=== PATIENT | male | born 1955 | race African-American/Black ===

== ENCOUNTER 2023-09-07 18:11 | Emergency (ER) | payer MEDICAID, OTHER ==
[~2023-09-07] VITALS: Ht 177.8 cm; Wt 74.0 kg
[2023-09-07 18:16] VITALS: BP 122/73; PULSE 61; RESP 16; TEMP 98.9; O2SAT 99
[2023-09-07] MEDS ORDERED: METH-653 MT (20:25)
== END 2023-09-07 21:13 | disposition home or self-care (01) ==
LOC: ER 18:51
DX: R10.31 Right lower quadrant pain (principal); V49.9XXA Car occupant (driver) (passenger) injured in unspecified traffic accident, initial encounter; Y93.89 Activity, other specified; Y92.89 Other specified places as the place of occurrence of the external cause; Y99.8 Other external cause status
CPT/HCPCS: 72170; 99283

== ENCOUNTER 2023-09-11 00:32 | Emergency (ER) | payer MEDICARE, MEDICAID ==
[~2023-09-11] VITALS: Ht 177.8 cm; Wt 74.0 kg
[~2023-09-11 00:32] MED LIST: METH-653 MT
[2023-09-11 00:41] VITALS: BP 146/80; RESP 16; TEMP 97.8; O2SAT 99
[2023-09-11 00:42] VITALS: PULSE 50
[2023-09-11] MEDS ORDERED: IBUPROFEN 600MG TABLET PO ONE (01:45)
[2023-09-11] MEDS ORDERED: IBUP-2029 MT (02:25)
== END 2023-09-11 02:31 | disposition home or self-care (01) ==
LOC: ER 00:32
DX: S20.222A Contusion of left back wall of thorax, initial encounter (principal); W18.39XA Other fall on same level, initial encounter; Y93.89 Activity, other specified; Y92.89 Other specified places as the place of occurrence of the external cause; Y99.8 Other external cause status
CPT/HCPCS: 71101; 99283

== ENCOUNTER 2024-01-01 03:05 | Emergency (ER) | payer MEDICARE, MEDICAID ==
[~2024-01-01] VITALS: Ht 180.3 cm; Wt 74.9 kg
[~2024-01-01 03:05] MED LIST changes: +IBUP-2029 MT
[2024-01-01 03:23] VITALS: TEMP 98.5; O2SAT 100
[2024-01-01 05:49] VITALS: BP 157/82; PULSE 53; RESP 16
== END 2024-01-01 05:52 | disposition home or self-care (01) ==
LOC: ER 03:05
DX: R51.9 Headache, unspecified (principal); Z98.890 Other specified postprocedural states
CPT/HCPCS: 99281

== ENCOUNTER 2024-02-19 13:26 | Emergency (ER) | payer MEDICARE, MEDICAID ==
[~2024-02-19] VITALS: Ht 177.8 cm; Wt 74.8 kg
[2024-02-19 13:32] VITALS: BP 150/80; PULSE 62; RESP 18; TEMP 98.7; O2SAT 100
[2024-02-19] MEDS ORDERED: FLUT9.9S16 BOTHNSTRLS (14:48)
[2024-02-19] MEDS ORDERED: LORA10CA MT (14:48)
== END 2024-02-19 14:50 | disposition home or self-care (01) ==
LOC: ER 13:26
DX: J32.8 Other chronic sinusitis (principal); R51.9 Headache, unspecified; I10 Essential (primary) hypertension
CPT/HCPCS: 99282

== ENCOUNTER 2024-03-16 14:02 | Emergency (ER) | payer MEDICARE, MEDICAID ==
[~2024-03-16] VITALS: Ht 177.8 cm; Wt 75.0 kg
[~2024-03-16 14:02] MED LIST changes: +FLUT9.9S16 BOTHNSTRLS; -IBUP-2029 MT; +LEVO100T MT; +LORA10CA MT
[2024-03-16 14:12] VITALS: O2SAT 98
[2024-03-16] MEDS ORDERED: RIVA10TA MT (17:40)
[2024-03-16 17:54] VITALS: BP 143/78; PULSE 58; RESP 18; TEMP 98.7
[2024-03-16] MEDS ORDERED: CEPH500C2 MT (18:07)
== END 2024-03-16 18:34 | disposition home or self-care (01) ==
LOC: ER 14:13
DX: M79.89 Other specified soft tissue disorders (principal); Z98.890 Other specified postprocedural states
CPT/HCPCS: 93971; 99284

== ENCOUNTER 2024-10-18 20:51 | Emergency (ER) | payer MEDICARE, MEDICAID ==
[~2024-10-18] VITALS: Ht 177.8 cm; Wt 73.0 kg
[~2024-10-18 20:51] MED LIST changes: +CEPH500C2 MT
[2024-10-18 21:00] VITALS: O2SAT 100
[2024-10-18 21:10] VITALS: BP 123/81; PULSE 65; RESP 16; TEMP 36.9; O2SAT 100
[2024-10-18] MEDS ORDERED: KETOROLAC 15MG/ML VIAL IM ONE (22:00)
[2024-10-18] MEDS ORDERED: METH-653 MT (23:04)
[2024-10-18] MEDS ORDERED: IBUP-2029 MT (23:04)
== END 2024-10-18 23:55 | disposition home or self-care (01) ==
LOC: ER 21:03
DX: G44.209 Tension-type headache, unspecified, not intractable (principal); I10 Essential (primary) hypertension; Z98.890 Other specified postprocedural states; Z79.899 Other long term (current) drug therapy; V89.2XXA Person injured in unspecified motor-vehicle accident, traffic, initial encounter; Y93.89 Activity, other specified; Y92.89 Other specified places as the place of occurrence of the external cause; Y99.8 Other external cause status
CPT/HCPCS: 99283